=== PATIENT | male | born 1990 | race American Indian/Alaskan Native ===

== ENCOUNTER 2017-05-12 22:37 | Emergency (ER) | payer SELFPAY ==
[2017-05-13 00:09] VITALS: BP 118/59
[2017-05-13] MEDS ORDERED: PERCOCET 5/325 PO ONE (05:56)
--- NOTE | 2017-05-13 06:00 | Emergency Department Report ---
ED General Adult HPI - General Chief complaint: Rectal Pain Stated complaint: RECTAL BLEEDING Time Seen by Provider: 05/13/17 05:56 Source: patient Mode of arrival: Ambulatory Limitations: No Limitations - History of Present Illness Initial comments: 26-year-old [place] male comes in complaint of rectal pain and bleeding status post anal sex. Patient reports that this started last . He's had no signs or symptoms prior to having anal sex. Patient reports these haven't bright blood from rectum and it feels swollen. Patient reports he took an ibuprofen on Wednesday 400 mg did not take anything O Wednesday. Patient reports no past medical history currently takes no medication and has no known drug allergies. -: week(s) (1) Severity scale (0 -10): 10 Quality: burning, stabbing Consistency: constant Improves with: none Associated Symptoms: denies other symptoms Treatments Prior to Arrival: none - Related Data Previous Rx's Medication Instructions Recorded Last Taken Type Acetaminophen/Codeine [Tylenol 1 tab PO Q6H PRN #12 tab 05/13/17 Unknown Rx /Codeine # 3 tab] Hydrocortisone [Anusol-Hc] 30 gm RC QID PRN #1 box 05/13/17 Unknown Rx Allergies Allergy/AdvReac Type Severity Reaction Status Date / Time No Known Allergies Allergy Unverified 05/13/17 00:08 ED Review of Systems ROS: Stated complaint: RECTAL BLEEDING Other details as noted in HPI Constitutional: denies: chills, fever Eyes: denies: eye pain, eye discharge, vision change ENT: denies: ear pain, throat pain Respiratory: denies: cough, shortness of breath, wheezing Cardiovascular: denies: chest pain, palpitations Endocrine: no symptoms reported Gastrointestinal: hematochezia, other (rectum pain). denies: abdominal pain, nausea, diarrhea Genitourinary: denies: urgency, dysuria Musculoskeletal: denies: back pain, joint swelling, arthralgia Skin: denies: rash, lesions Neurological: denies: headache, weakness, paresthesias Psychiatric: denies: anxiety, depression Hematological/Lymphatic: denies: easy bleeding, easy bruising ED Past Medical Hx - Past Medical History Previous Medical History?: No - Surgical History Past Surgical History?: No - Social History Smoking Status: Current Every Day Smoker Substance Use Type: Alcohol - Medications Home Medications: Home Medications Medication Instructions Recorded Confirmed Last Taken Type Acetaminophen/Codeine [Tylenol 1 tab PO Q6H PRN #12 tab 05/13/17 Unknown Rx /Codeine # 3 tab] Hydrocortisone [Anusol-Hc] 30 gm RC QID PRN #1 box 05/13/17 Unknown Rx ED Physical Exam - General Limitations: No Limitations General appearance: alert, in no apparent distress - Head Head exam: Present: atraumatic, normocephalic - Eye Eye exam: Present: normal appearance - ENT ENT exam: Present: mucous membranes moist - Neck Neck exam: Present: normal inspection - Respiratory Respiratory exam: Present: normal lung sounds bilaterally. Absent: respiratory distress - Cardiovascular Cardiovascular Exam: Present: regular rate, normal rhythm. Absent: systolic murmur, diastolic murmur, rubs, gallop - GI/Abdominal GI/Abdominal exam: Present: soft, normal bowel sounds - Rectal Rectal exam: Present: normal rectal tone, heme (+) stool, hemorrhoids - exam: Present: normal inspection - Extremities Exam Extremities exam: Present: normal inspection - Back Exam Back exam: Present: normal inspection - Neurological Exam Neurological exam: Present: alert, oriented X3 - Psychiatric Psychiatric exam: Present: normal affect, normal mood - Skin Skin exam: Present: warm, dry, intact, normal color. Absent: rash ED Course Vital Signs 05/13/17 00:00 Temperature 99 F Pulse Rate 66 Respiratory 18 Rate Blood Pressure 118/59 O2 Sat by Pulse 100 Oximetry ED Medical Decision Making - Medical Decision Making Patient's been evaluated for this provider fast track. I discussed the patient appears that he has a internal hemorrhoid with a small amount of external hemorrhoid is nonthrombosed. Discussed patient we will place him on Anusol rectal suppositories and pain medication. Discussed the patient this is caused by trauma to the rectum and repetitive trauma to the rectum will continue with pain and swelling. Patient verbalized understanding Critical care attestation.: If time is entered above; I have spent that time in minutes in the direct care of this critically ill patient, excluding procedure time. ED Disposition Clinical Impression: Hemorrhoids, internal, with bleeding Disposition: DC-01 TO HOME OR SELFCARE Is pt being admited?: No Does the pt Need Aspirin: No Condition: Stable Instructions: Rectal Bleeding (ED), Hemorrhoids (ED) Additional Instructions: Please use suppositories as prescribed. Please prevent continuing trauma. His pain persist or gets worse please follow up with her primary care provider. Prescriptions: Acetaminophen/Codeine [Tylenol /Codeine # 3 tab] 1 tab PO Q6H PRN #12 tab PRN Reason: Pain Hydrocortisone [Anusol-Hc] 30 gm RC QID PRN #1 box PRN Reason: recal pain Referrals: PRIMARY CARE, [Primary Care Provider] - 3-5 Days Quentin Francis [Other] - 3-5 Days Forms: Work/School Release Form(ED), Accompanied Note
== END 2017-05-13 06:29 | disposition home or self-care (01) ==
LOC: ED 22:37
DX: K64.8 Other hemorrhoids (principal); F17.200 Nicotine dependence, unspecified, uncomplicated